=== PATIENT | female | born 2000 | race Caucasian/White ===

== ENCOUNTER 2023-12-29 15:46 | Emergency (ER) | payer OTHER ==
[2023-12-29 16:04] VITALS: BP 123/65; PULSE 98; RESP 16; TEMP 98.1; BMI 34.9
[2023-12-29] MEDS ORDERED: IBUPROFEN 600 MG TABLET (FP) PO ONE (17:16)
[2023-12-29] MEDS ORDERED: ACETAMINOPHEN 500 MG TABLET (FP) ONE (17:17)
[2023-12-29] MEDS: IBUPROFEN 600 MG TABLET (FP) PO ONE (17:23)
[2023-12-29] MEDS: ACETAMINOPHEN 500 MG TABLET (FP) PO ONE (17:23)
== END 2023-12-29 17:24 | disposition home or self-care (01) ==
LOC: JERFT 15:46
DX: M25.561 Pain in right knee (principal); X50.1XXA Overexertion from prolonged static or awkward postures, initial encounter
CPT/HCPCS: 73560-TC-RT-FY; 99283-25

== ENCOUNTER 2024-01-08 15:47 | Emergency (ER) | payer OTHER ==
[2024-01-08 15:56] VITALS: BP 126/81; PULSE 91; RESP 18; TEMP 98.5; BMI 34.9
[2024-01-08] MEDS ORDERED: LORATADINE 10 MG TABLET ONE (16:29)
[2024-01-08] MEDS ORDERED: IBUPROFEN 600 MG TABLET (FP) PO ONE (16:29)
[2024-01-08] MEDS: LORATADINE 10 MG TABLET PO ONE (16:33)
[2024-01-08] MEDS: IBUPROFEN 600 MG TABLET (FP) PO ONE (16:33)
== END 2024-01-08 17:10 | disposition home or self-care (01) ==
LOC: JERFT 15:47
DX: R05.9 Cough, unspecified (principal); M79.10 Myalgia, unspecified site; R09.81 Nasal congestion; J34.89 Other specified disorders of nose and nasal sinuses; J06.9 Acute upper respiratory infection, unspecified; U07.1 COVID-19
CPT/HCPCS: 0241U-QW; 99283-25